=== PATIENT | male | born 1980 | race Caucasian/White ===

== ENCOUNTER 2017-05-08 00:30 | Emergency (ER) | payer MEDICAID ==
[~2017-05-08] VITALS: Ht 165.1 cm; Wt 94.3 kg
[2017-05-08 00:40] VITALS: BP 158/108
--- NOTE | 2017-05-08 00:41 | NUR ---
Patient to bed 12.
--- NOTE | 2017-05-08 00:46 | NUR ---
PATIENT PRESENTS TO ED WITH CHIN LACERATION S/P TRIP AND FALL, NO ACTIVE BLEEDING PT DENIES N/V/D; SKIN IS PINK/WARM/DRY; AAOX4 WITH EVEN AND STEADY GAIT; LUNGS CLEAR BL; HR EVEN AND REGULAR; PT DENIES ANY FEVER, CP, SOB, OR COUGH AT THIS TIME; PATIENT STATES PAIN OF 4/10 AT THIS TIME; VSS; PATIENT POSITIONED FOR COMFORT; HOB ELEVATED; BEDRAILS UP X2; BED DOWN. ER MD MADE AWARE OF PT STATUS.
[2017-05-08] MEDS ORDERED: LIDOCAINE 1% ***ER ONLY *** 50 ML ONE ×2 (00:58→02:01)
[2017-05-08] MEDS ORDERED: NEOMYCIN/POLYMYXIN/BACITRACIN 0.9 GM/1 PKT TP ONE (00:58)
--- NOTE | 2017-05-08 01:30 | NUR ---
APPLIED DERMABOND TO LACERATION AT CHIN
[2017-05-08 02:08] VITALS: BP 140/95
--- NOTE | 2017-05-08 02:08 | NUR ---
Patient discharged with v/s stable. Written and verbal after care instructions given and explained. Patient verbalized understanding. Ambulatory with steady gait. All questions addressed prior to discharge. Advised to follow up with PMD.
== END 2017-05-08 02:08 | disposition home or self-care (01) ==
LOC: MED 00:30
DX: S01.81XA Laceration without foreign body of other part of head, initial encounter (principal); W01.0XXA Fall on same level from slipping, tripping and stumbling without subsequent striking against object, initial encounter; Y93.89 Activity, other specified; Y92.89 Other specified places as the place of occurrence of the external cause; Y99.8 Other external cause status
CPT/HCPCS: 12011; 90471; 90715; 99283; J2001

== ENCOUNTER 2018-08-28 20:57 | Emergency (ER) | payer MEDICAID ==
[~2018-08-28] VITALS: Ht 167.6 cm; Wt 90.7 kg
[2018-08-28 21:11] VITALS: BP 160/105
--- NOTE | 2018-08-28 21:11 | NUR ---
PT TAKEN TO BED 11
--- NOTE | 2018-08-28 22:21 | NUR ---
PATIENT PRESENTS TO ED WITH RIGHT SHOLDER PAIN. DENIES N/V/D; SKIN IS PINK/WARM/DRY; AAOX4 WITH EVEN AND STEADY GAIT; LUNGS CLEAR BL; HR EVEN AND REGULAR; PT DENIES ANY FEVER, CP, SOB, OR COUGH AT THIS TIME; PATIENT STATES PAIN OF 4/10 AT THIS TIME; VSS; PATIENT POSITIONED FOR COMFORT; HOB ELEVATED; BEDRAILS UP X2; BED DOWN. ER MD MADE AWARE OF PT STATUS.
[2018-08-28 22:30] VITALS: BP 144/95
== END 2018-08-28 22:30 | disposition home or self-care (01) ==
LOC: MED 20:57
DX: S43.401A Unspecified sprain of right shoulder joint, initial encounter (principal); X50.0XXA Overexertion from strenuous movement or load, initial encounter; Y93.89 Activity, other specified; Y92.89 Other specified places as the place of occurrence of the external cause; Y99.8 Other external cause status
CPT/HCPCS: 73030; 99283; Q0092

== ENCOUNTER 2019-04-14 13:34 | Emergency (ER) | payer MEDICAID ==
[~2019-04-14] VITALS: Ht 160 cm; Wt 93.4 kg
[2019-04-14 13:40] VITALS: BP 144/94
[2019-04-14] MEDS ORDERED: NACL 0.9% 1,000 ML IV SCH (13:48)
[2019-04-14] MEDS ORDERED: KETOROLAC 30 MG/ML VIAL IVP ONE (13:50)
[2019-04-14 14:24] LABS: BASOPHILS # (AUTO) 0.1 K/uL (0.00-0.22); BASOPHILS % (AUTO) 0.5 % (0.0-2.0); EOSINOPHILS % (AUTO) 0.4 % (0.0-4.0); HEMATOCRIT 45.6 % (36-52); HEMOGLOBIN 15.2 g/dL (12.0-18.0); LYMPHOCYTES # (AUTO) 1.1 K/uL (2.0-11.5); LYMPHOCYTES % (AUTO) 9.1 % (20.5-51.1); MEAN CORPUSCULAR HEMOGLOBIN 30 pg (27-31); MEAN CORPUSCULAR HGB CONC 33 g/dL (33-37); MEAN CORPUSCULAR VOLUME 89.6 fL (80-94); MONOCYTES # (AUTO) 0.5 K/uL (0.8-1.0); MONOCYTES % (AUTO) 4.5 % (1.7-9.3); NEUTROPHILS # (AUTO) 9.9 K/uL (1.8-7.7); NEUTROPHILS % (AUTO) 85.5 % (42.2-75.2); PLATELET COUNT (AUTO) 229 K/uL (140-450); RED BLOOD CELL COUNT(AUTO) 5.09 MIL/uL (4.20-6.10); RED CELL DISTRIBUTION WIDTH 13.2 % (11.6-13.7); WHITE BLOOD COUNT (AUTO) 11.6 K/uL (4.8-10.8)
[2019-04-14 14:34] LABS: ANION GAP 12.3 (8-16); CARBON DIOXIDE 26.5 mmol/L (21-32); CREATININE 0.9 mg/dL (0.7-1.3); POTASSIUM 3.8 mmol/L (3.5-5.1)
[2019-04-14 14:41] LABS: ALBUMIN 4.1 g/dL (3.4-5.0); TOTAL BILIRUBIN 0.6 mg/dL (0.0-1.0)
[2019-04-14 14:57] LABS: APPEARANCE,URINE BLOODY (CLEAR); BILIRUBIN,URINE NEGATIVE (NEGATIVE); BLOOD, URINE 3+ (NEGATIVE); COLOR,URINE AMBER (YELLOW); LEUKOCYTE ESTERASE ,URINE TRACE (NEGATIVE); NITRITE, URINE POSITIVE (NEGATIVE); PH,URINE 6.5 (5.0-9.0); UGLUCOSE TRACE (NEGATIVE)
[2019-04-14 15:02] VITALS: BP 141/80
[2019-04-14 15:45] LABS: RBC,URINE TOO NUMEROUS TO COUN /HPF (0-5)
[2019-04-14 15:46] LABS: WBC,URINE 0-5 /HPF (0-5); YEAST,URINE None Seen /HPF (None Seen)
== END 2019-04-14 15:02 | disposition home or self-care (01) ==
LOC: MED 13:34
DX: N23 Unspecified renal colic (principal)
CPT/HCPCS: 36415; 74176; 80053; 81001; 85025; 96374; 99284; J1885; J7030

== ENCOUNTER 2019-04-15 03:07 | Emergency (ER) | payer MEDICAID ==
[~2019-04-15] VITALS: Ht 167.6 cm; Wt 93.4 kg
[2019-04-15 03:17] VITALS: BP 141/94
--- NOTE | 2019-04-15 03:20 | NUR ---
38/M PRESENTED TO ED WITH C/O LEFT LOWER ABD PAIN. 10/10 SHARP PAIN. SEEN 12 HRS AGO IN ER, DIAGNOSED W/ KIDNEY STONES. PT STATES PAIN MEDICATIONS NOT WORKING. VSS. MEDHX: DENIES ALLERGIES: DENIES
--- NOTE | 2019-04-15 03:57 | NUR ---
Dr. Alvarado examining patient.
[2019-04-15] MEDS ORDERED: MORPHINE SULFATE 4 MG/ML SYR IM ONE (04:05)
[2019-04-15 05:56] VITALS: BP 136/90
--- NOTE | 2019-04-15 05:56 | NUR ---
Patient discharged with v/s stable. Written and verbal after care instructions given and explained. Patient alert, oriented and verbalized understanding of instructions. Ambulatory with steady gait. All questions addressed prior to discharge. ID band removed. Patient advised to follow up with PMD. Rx of FLOMAX, NORCO given. Patient educated on indication of medication including possible reaction and side effects. Opportunity to ask questions provided and answered.
== END 2019-04-15 05:56 | disposition home or self-care (01) ==
LOC: MED 03:07
DX: N20.0 Calculus of kidney (principal)
CPT/HCPCS: 96372; 99283; J2270

== ENCOUNTER 2019-12-31 11:00 | Emergency (ER) | payer MEDICAID ==
[~2019-12-31] VITALS: Ht 160 cm; Wt 95.3 kg
[2019-12-31 11:26] VITALS: BP 157/90
[2019-12-31] MEDS ORDERED: KETOROLAC 60 MG/2 ML VIAL IM ONE (11:35)
--- NOTE | 2019-12-31 11:39 | NUR ---
39 Y/O MALE C/O LEFT KNEE PAIN X1 WEEK. DENIES ANY TRAUMA/FALL THIS MONTH. SWELLING NOTED ON LEFT KNEE. STATES PAIN IS 6/10, STATES HE TOOK PAIN MEDICATION THIS MORNING BUT IS UNABLE TO RECALL THE NAME OF MED. PT IS ABLE TO AMBULATE WITHOUT DEFECIT. PEDAL PULSES PRESENT BILAT. CMS+, ROM + BLE. NO PMH NKA
--- NOTE | 2019-12-31 12:28 | NUR ---
Dr. Muse is evaluating the patient at bedside.
== END 2019-12-31 12:40 | disposition home or self-care (01) ==
LOC: MED 11:00
DX: M25.562 Pain in left knee (principal)
CPT/HCPCS: 96372; 99283; J1885

== ENCOUNTER 2021-07-27 08:30 | Emergency (ER) | payer MEDICAID ==
[~2021-07-27] VITALS: Ht 157.5 cm; Wt 90.7 kg
[2021-07-27 08:35] VITALS: BP 156/90
[2021-07-27] MEDS ORDERED: KETOROLAC 60 MG/2 ML VIAL IM ONE (08:55)
[2021-07-27] MEDS ORDERED: IBUP-2213 PO (08:57)
== END 2021-07-27 09:45 | disposition home or self-care (01) ==
LOC: MED 08:30
DX: M25.512 Pain in left shoulder (principal)
CPT/HCPCS: 96372; 99283; J1885